=== PATIENT | female | born 1980 | race Caucasian/White ===

== ENCOUNTER 2023-07-19 11:41 | Outpatient (CLI) | payer OTHER, SELFPAY ==
--- NOTE | ~2023-07-19 | US_ITS ---
US axilla LT DATE: 07/19/2023 11:55 INDICATION: Subcutaneous cyst TECHNIQUE: Real-time imaging and color-flow imaging targeted at area of clinical complaint and left a xilla COMPARISON: None FINDINGS: There is a subcutaneous parallel circumscribed sonolucency measuring 3 x 6 x 6 mm, through transmission posterior enhancement, consistent with benign cyst. IMPRESSION: Benign 3 x 6 mm subcutaneous cyst of the left axilla Reviewed, dictated and finalized at [facility]. Reviewed, dictated and finalized at [facility].
== END 2023-07-19 11:42 ==
PROVIDERS: PCP Internal Medicine; Visit Provider Internal Medicine
DX: L72.9 Follicular cyst of the skin and subcutaneous tissue, unspecified (principal)
CPT/HCPCS: 76882

== ENCOUNTER 2023-09-23 09:22 | Emergency (ER) | payer BC, SELFPAY ==
--- NOTE | ~2023-09-23 | XR_ITS ---
EXAMINATION: XR foot LT min 3V DATE: 09/23/2023 10:20 INDICATION: Lateral left foot pain post triple and fall TECHNIQUE: Dorsoplantar, two oblique and lateral views of the left foot were obtained. COMPARISON: None. FINDINGS: 2 mm plantar/medial displacement of an oblique extra articular fracture of the left fifth metatarsal diaphysis. Bone alignment is otherwise normal. No other fractures identified. Joint spaces are normal . IMPRESSION: 1. 2 mm displacement of an extra articular diaphyseal fracture of the left fifth metatarsal. Reviewed, dictated and finalized at [facility]. IMPRESSION: 1. 2 mm displacement of an extra articular diaphyseal fracture of the left fift h metatarsal.
[2023-09-23 09:44] VITALS: BP 95/66; PULSE 65; RESP 16; TEMP 36.8; O2SAT 99
--- NOTE | 2023-09-23 10:11 | ED.LOWEXIN ---
HPI - Extremity Injury (Lower) General Chief Complaint: Extremity Injury, Lower Stated Complaint: INJURED L FOOT Time Seen by Provider: 09/23/23 10:07 Source: patient and RN notes reviewed Mode of arrival: ambulatory Limitations: no limitations History of Present Illness HPI Narrative: Patient presents today complaining of left foot pain after a trip and fall injury yesterday. Denies numbness or tingling in the foot or toes. She rates her pain 1/10 at rest, which increases to 9/10 with weight-bearing. She took a dose of ibuprofen yesterday but is unsure if it was helpful. Related Data Home Medications Medication Instructions Recorded Confirmed No Home Medications 09/23/23 09/23/23 Allergies Allergy/AdvReac Type Severity Reaction Status Date / Time codeine Allergy Unknown Nausea and Verified 02/12/15 09:54 Vomiting Review of Systems Review of Systems: CONSTITUTIONAL: Denies body aches, fever, chills, or sweats. EYES: Denies visual changes, redness, or discharge. ENT: Denies rhinorrhea, congestion, sore throat, or otalgia. CARDIOVASCULAR: Denies chest pain, palpitations, or edema. RESPIRATORY: Denies cough or dyspnea. GASTROINTESTINAL: Denies abdominal pain, nausea, vomiting, or diarrhea. GENITOURINARY: Denies dysuria or hematuria. SKIN: Denies rash, itching, or wounds. MUSCULOSKELETAL: Denies back pain, or myalgia.+ left foot injury NEUROLOGIC: Denies headache, numbness, tingling, or weakness. PSYCH: Denies depression or anxiety. PMFSH Comments At time of signature, I have reviewed and agree with nursing past medical, surgical, social and family history unless otherwise noted. Please see nursing chart for further information. There is no relevant family history pertinent to the presenting complaint Exam Narrative: GENERAL: Well-appearing, well-nourished, and in no acute distress. HEAD: Normocephalic, atraumatic. EYES: EOMI. No redness or drainage. Conjunctivae normal. ENT: Mucous membranes pink and moist. NECK: Normal AROM. CHEST: No respiratory distress. EXTREMITIES: Left foot: Ecchymosis and mild edema to most of the dorsum foot. Patient localizes the most severe pain at the base of toes 3 through 5. Distal sensation intact. Capillary refill normal. Pedal pulse normal. Full range of motion of the toes and ankle. Ankle is unaffected. SKIN: Warm, dry, no rash. Capillary refill normal. Normal skin turgor. NEURO: No focal deficits. Alert and oriented x3. Gait steady. PSYCH: Normal affect. No signs of depression or anxiety. Course Course Level of Care: Express Care Visit Vital Signs Vital signs: Vital Signs Temperature 98.3 F 09/23/23 09:44 Pulse Rate 65 09/23/23 09:44 Respiratory Rate 16 09/23/23 09:44 Blood Pressure 95/66 L 09/23/23 09:44 Pulse Oximetry 99 09/23/23 09:44 Temperature 98.3 F 09/23/23 09:44 Pulse Rate 65 09/23/23 09:44 Respiratory Rate 16 09/23/23 09:44 Blood Pressure 95/66 L 09/23/23 09:44 Pulse Oximetry 99 09/23/23 09:44 Reviewed MDM - Extremity Injury (Lower) MDM Narrative Medical decision making narrative: X-ray shows fracture of the 5th metatarsal. Patient has been placed in a postop shoe and provided with crutches. She will follow-up with orthopedics for further evaluation. She declines prescription for pain medication. Anticipatory guidance given. Differential Diagnosis Differential diagnosis: Likely other (Foot fracture, contusion, sprain) Imaging Data Radiologist's impression: ITS Impressions Foot X-Ray 09/23/23 10:23 IMPRESSION: 1. 2 mm displacement of an extra articular diaphyseal fracture of the left fifth metatarsal. Critical Care Time Critical Care Time Critical Care Time: No Discharge Plan Discharge Clinical Impression: Metatarsal fracture Qualifiers: Encounter type: initial encounter Metatarsal bone: fifth Fracture type: closed Fracture alignment: displaced Lat
== END 2023-09-23 11:04 | disposition home or self-care (01) ==
PROVIDERS: Emergency Provider Nurse Practitioner; PCP Internal Medicine
DX: S92.352A Displaced fracture of fifth metatarsal bone, left foot, initial encounter for closed fracture (principal); W01.0XXA Fall on same level from slipping, tripping and stumbling without subsequent striking against object, initial encounter
CPT/HCPCS: 73630; 99214; G0463

== ENCOUNTER 2023-11-23 13:11 | Outpatient (CLI) | payer BC, SELFPAY ==
--- NOTE | ~2023-11-23 | MM_ITS ---
EXAMINATION: MM scrn lit implant BI w dhruv HISTORY: Screening mammogram TECHNIQUE: Craniocaudal and mediolateral oblique 3-D tomosynthesis images with implant displacement a nd synthetic 2-D images were generated. Craniocaudal and mediolateral oblique views of the breasts wi thout implant displacement were obtained using full field digital mammography. CAD analysis was submi tted and interpreted. COMPARISON: No prior mammogram is available for comparison at this institution. BREAST PARENCHYMAL COMPOSITION: Dense: The breasts are extremely dense, which lowers the sensitivity of mammography. FINDINGS: There is a subpectoral right saline breast implant. There is no evidence of suspicious mass , calcification, or architectural distortion to suggest malignancy in either breast. There has been n o suspicious interval change. IMPRESSION: 1. No mammographic evidence of malignancy. 2. Recommend routine screening mammography in one year. BI-RADS Category 1: Negative Reviewed, dictated and finalized at [facility].
== END 2023-11-23 13:12 | disposition home or self-care (01) ==
LOC: MICIMG 13:14
PROVIDERS: PCP Internal Medicine; Visit Provider Internal Medicine
DX: Z12.31 Encounter for screening mammogram for malignant neoplasm of breast (principal)
CPT/HCPCS: 77063; 77067